=== PATIENT | male | born 1975 | race Caucasian/White ===

== ENCOUNTER 2020-02-09 04:39 | Emergency (ER) | payer BC, SELFPAY ==
--- NOTE | ~2020-02-09 | CT_ITS ---
EXAMINATION: CT abdomen pelvis wo con DATE: 02/09/2020 05:11 INDICATION: Left flank pain TECHNIQUE: Computed tomography (CT) of the abdomen and pelvis was performed without intravenous contr ast. The dose-length product (DLP) was 1298.21 mGy-cm. Automated exposure control and iterative recon struction technique were employed. COMPARISON: 07/06/2015 FINDINGS: The lung bases are clear. The heart size is normal. There is calcified coronary artery athe rosclerosis. There are changes of gastric bypass surgery. The liver, spleen, pancreas, gallbladder, a nd adrenal glands are normal. There is a 4 mm stone near the left ureterovesicular junction which cau ses mild left hydroureteronephrosis. Nonobstructing left kidney stones measure up to 9 mm. There are multiple nonobstructing stones of the right kidney which measure up to 5 mm. No pathologically enlarg ed abdominal or pelvic lymph nodes are identified. There is no free intraperitoneal gas or evidence o f bowel obstruction. The appendix is normal. There is mild lumbar spondylosis. IMPRESSION: 1. 4 mm stone near the left ureterovesicular junction causing mild left hydroureteronephrosis. 2. Bilateral nonobstructing nephrolithiasis. Reviewed, dictated and finalized at location A. IMPRESSION: 1. 4 mm stone near the left ureterovesicular junction causing mild left hydrour eteronephrosis. 2. Bilateral nonobstructing nephrolithiasis.
[2020-02-09 04:41] VITALS: BP 145/97; PULSE 68; RESP 16; TEMP 37.1; O2SAT 100
--- NOTE | 2020-02-09 04:49 | ED.ABDPAIN ---
HPI - Abdominal Pain General Chief Complaint: Abdominal Pain Stated Complaint: kidney stone Time Seen by Provider: 02/09/20 04:44 History of Present Illness HPI narrative: Left flank pain since last night. No radiation. Feels the same as prior kidney stones, which he has had several of. No nausea, vomiting, fever, hematuria. He took [address] Younger is his urologist. Related Data Home Medications Medication Instructions Recorded Confirmed montelukast mg 02/09/20 Allergies Allergy/AdvReac Type Severity Reaction Status Date / Time hydrocodone Allergy Mild ITCHING Verified 02/09/20 05:03 Review of Systems Review of Systems: All systems reviewed & are unremarkable except as noted in HPI and below Constitutional: Constitutional: Denies chills and Denies fever(s) Cardiovascular: Cardiovascular: Denies chest pain Respiratory: Respiratory: Denies dyspnea Gastrointestinal: Gastrointestinal: Reports diarrhea, Denies nausea and Denies vomiting Genitourinary: Genitourinary: Denies hematuria and Denies dysuria Musculoskeletal: Musculoskeletal: Denies myalgias Neurologic: Denies dizziness and Denies weakness [facility] Past Medical History Medical History (Updated 02/09/20 @ 05:54 by Eric Benito MD) Kidney stone Family History Family History Grandparent Family history of transient ischemic attacks Family history of lung cancer Other Diabetes mellitus Hypertension Social History Social History Smoking status: Never smoker Alcohol intake: current Exam Const: General: no acute distress and alert Nutritional Appearance: obese Orientation/consciousness: patient oriented x3 HENMT: Mouth: Yes dry mucous membranes Resp: Effort & Inspection: normal respiratory effort GI: GI Palp: Yes Soft to palpation Skin: General skin exam: normal color Neuro: General: patient oriented x3 and moves all extremities Speech: normal speech Course Vital Signs Vital signs: Vital Signs Temperature 37.1 C 02/09/20 04:41 Pulse Rate 68 02/09/20 04:41 Respiratory Rate 16 02/09/20 04:41 Blood Pressure 145/97 H 02/09/20 04:41 Pulse Oximetry 100 02/09/20 04:41 Temperature 37.1 C 02/09/20 05:28 Pulse Rate 69 02/09/20 05:36 Respiratory Rate 14 02/09/20 05:36 Blood Pressure 138/93 H 02/09/20 05:36 Pulse Oximetry 100 02/09/20 05:36 MDM - Abdominal Pain Lab Data Result diagrams: 02/09/20 04:53 02/09/20 04:53 Labs: Lab Results 02/09/20 02/09/20 02/09/20 Range/Units 04:53 04:53 05:33 WBC 6.5 (4.5-10.0) K/mm3 RBC 5.05 (4.6-6.20) M/mm3 Hgb 15.4 (14.0-18.0) g/dL Hct 46.1 (42.0-52.0) % MCV 91.3 (80-100) fl MCH 30.5 (26-34) pg MCHC 33.4 (32-36) g/dl RDW 13.1 (11.5-14.5) % Plt Count 308 (150-375) k/mm3 MPV 10.2 (7.4-10.4) fl Immature Gran % (Auto) 0.2 (0-0.5) % Neut % (Auto) 34.8 L (45.5-73.1) % Lymph % (Auto) 52.6 H (18.3-44.2) % [place] % (Auto) 8.3 (2.6-8.5) % Eos % (Auto) 3.5 (0-4.4) % Baso % (Auto) 0.6 (0.2-1.2) % Lymph # (Auto) 3.41 H (0.9-3.2) K/mm3 [place] # (Auto) 0.5 (0.1-0.6) K/mm3 Eos # (Auto) 0.2 (0-0.3) K/mm3 Baso # (Auto) 0.0 (0.0-0.1) K/mm3 Abs Immat Gran (auto) 0.01 (0.00-0.031) K/mm3 Absolute Neuts (auto) 2.3 (1.3-6.7) K/mm3 Absolute Nucleated RBC 0.0 (0.0-0.012) K/mm3 Nucleated RBC % 0.0 (0.0-0.2) % Sodium 137 (137-145) mmol/L Potassium 3.5 (3.4-5.0) mmol/L Chloride 103 (98-107) mmol/L Carbon Dioxide 30 (22-30) mmol/L BUN 21 H (9-20) mg/dL Creatinine 0.80 (0.7-1.3) mg/dL Estim Creat Clear Calc 138 ml/min Estimated GFR > 60 (59 - ) Glucose 103 (75-110) mg/dL Calcium 9.4 (8.4-10.2) mg/dL Urine Color Yellow (Yellow) Urine A
[2020-02-09] MEDS: SODIUM CHLORIDE 0.9% IV 1,000 ML 999 ML IV CONT (05:00)
[2020-02-09 05:01] LABS: Basophils Percent Auto 0.6 % (0.2-1.2); Eosinophils Absolute Auto 0.2 K/mm3 (0-0.3); Eosinophils Percent Auto 3.5 % (0-4.4); Hematocrit 46.1 % (42.0-52.0); Hemoglobin 15.4 g/dL (14.0-18.0); Immature Granulocyte Absolute 0.01 K/mm3 (0.00-0.031); Immature Granulocyte Percent A 0.2 % (0-0.5); Lymphocytes Absolute Auto 3.41 K/mm3 (0.9-3.2); Lymphocytes Percent Auto 52.6 % (18.3-44.2); Mean Corpuscular HGB Conc 33.4 g/dl (32-36); Mean Corpuscular Hemoglobin 30.5 pg (26-34); Mean Corpuscular Volume 91.3 fl (80-100); Mean Platelet Volume 10.2 fl (7.4-10.4); Monocytes Absolute Auto 0.5 K/mm3 (0.1-0.6); Monocytes Percent Auto 8.3 % (2.6-8.5); Neutrophils Absolute Auto 2.3 K/mm3 (1.3-6.7); Neutrophils Percent Auto 34.8 % (45.5-73.1); Platelet Count Result 308 k/mm3 (150-375); Red Blood Count 5.05 M/mm3 (4.6-6.20); Red Cell Distribution Width 13.1 % (11.5-14.5); White Blood Count 6.5 K/mm3 (4.5-10.0)
[2020-02-09 05:18] LABS: Blood Urea Nitrogen 21 mg/dL (9-20); Calcium 9.4 mg/dL (8.4-10.2); Carbon Dioxide 30 mmol/L (22-30); Chloride 103 mmol/L (98-107); Estimated CRCL calculation 138 ml/min; Estimated Glomerular Filt Rate > 60; Glucose 103 mg/dL (75-110); Potassium 3.5 mmol/L (3.4-5.0); Sodium 137 mmol/L (137-145)
[2020-02-09 05:28] VITALS: TEMP 37.1
[2020-02-09] MEDS: MORPHINE SULFATE 2 MG/ML INJ IV PUSH (05:32)
[2020-02-09 05:36] VITALS: BP 138/93; PULSE 69; RESP 14; O2SAT 100
[2020-02-09 05:43] LABS: Add Urine Microscopic? YES; Appearance Urine Clear (Clear); Bilirubin Urine Negative (Negative); Blood Urine 2+ (Negative); Color Urine Yellow (Yellow); Glucose Urine UA Negative (Negative); Ketones Urine Negative (Negative); Leukocyte Esterase Ur Negative LEU/UL (Negative); Mucus Urine Rare /lpf; Nitrate Urine Negative (Negative); Protein Urine Negative (Negative); RBC Urine >75 /hpf (0-2); Specific Grav Ur 1.024 (1.001-1.035); Squamous Epithelial Cell Urine Rare /hpf (Few); Urobilinogen Urine Negative mg/dL (<2.0); WBC Urine 0-3 /hpf
[2020-02-09 06:02] VITALS: TEMP 37.1
[2020-02-09 06:16] VITALS: BP 125/91; PULSE 63; RESP 20; TEMP 36.3; O2SAT 94
== END 2020-02-09 06:18 | disposition home or self-care (01) ==
PROVIDERS: Emergency Provider Emergency Medicine; PCP Family Medicine
DX: N13.2 Hydronephrosis with renal and ureteral calculous obstruction (principal)
CPT/HCPCS: 36415; 74176; 80048; 81001; 85025; 96361; 96374; 96375; 99284; J2270; J3010; J7030

== ENCOUNTER 2020-10-13 16:11 | Outpatient (CLI) | payer BC, SELFPAY ==
--- NOTE | ~2020-10-13 | XR_ITS ---
EXAMINATION: XR abdomen/kub 1V DATE: 10/13/2020 16:30 INDICATION: Nephrolithiasis with bilateral abdominal pain. TECHNIQUE: A supine view of the abdomen on 2 radiographs was obtained. COMPARISON: CT dated 02/09/2020 FINDINGS: 9 mm stone at the lower pole of the left kidney and couple 2 mm stones at the interpolar region of th e left kidney. 3-4 mm stone projects over the mid right kidney. No definitive stones seen along the c ourse of the ureters however evaluation significantly limited by gas scattered throughout multiple lo ops of nondilated small bowel. Suture line in the left abdomen likely related to prior gastric bypass procedure. IMPRESSION: 1. Bilateral nephrolithiasis. No evident ureteral stones however assessment is significantly limited by multiple loops of superimposed nondilated gas containing small bowel. Reviewed, dictated and finalized at location A. E TRIM[place] IMPRESSION: 1. Bilateral nephrolithiasis. No evident ureteral stones however assessment is significantly limited by multiple loops of superimposed nondilated gas containi ng small bowel.
== END 2020-10-13 16:12 | disposition home or self-care (01) ==
PROVIDERS: PCP Family Medicine; Visit Provider Urology
DX: N20.0 Calculus of kidney (principal)
CPT/HCPCS: 74018

== ENCOUNTER 2022-04-13 03:21 | Observation (INO) | payer BC, SELFPAY ==
[2022-04-13] VITALS (18 sets, daily range): BP systolic 119–172; BP diastolic 76–130; PULSE 57–117; RESP 12–28; TEMP 35.5–36.7; O2SAT 93–100; BMI 39.9
--- NOTE | ~2022-04-13 | CT_ITS ---
EXAMINATION: CT abdomen pelvis wo con DATE: 04/13/2022 03:54 INDICATION: Left flank pain. History of kidney stones. TECHNIQUE: Computed tomography (CT) of the abdomen and pelvis was performed without intravenous contr ast. The dose-length product was 1111.57 mGy-cm. Automated exposure control and iterative reconstruct ion technique were employed. COMPARISON: CT dated 02/09/2020. FINDINGS: Lung bases are unremarkable. Heart size normal. No significant pleural or pericardial effus ion. There are surgical changes of gastric bypass. There is a low-density lesion at the dome of the l iver, likely benign. The spleen, pancreas, adrenal glands are unremarkable. Gallbladder is mildly dis tended with possible gallstones. There are nonobstructing bilateral renal stones. There is a left pro ximal ureteral stone measuring 8 mm at the L3-4 level. Mild left hydronephrosis. Bladder is decompres sed. There are surgical changes involving the small bowel in the left upper abdomen which is focally dilated with air-fluid level, nonspecific. This may reflect ileus or less likely partial obstruction. No significant vascular abnormality. No lymphadenopathy. Normal appendix. No acute osseous abnormali ty. IMPRESSION: 1. Left proximal ureteral stone measuring 8 mm with mild hydronephrosis. 2: Bilateral nephrolithiasis. 3: Focally dilated small bowel loops left upper abdomen with air-fluid level adjacent to anastomotic site. Consider ileus and partial obstruction. 4: Gallbladder distention with possible gallstones. Consider correlation with ultrasound. Reviewed, dictated and finalized at location A. IMPRESSION: 1. Left proximal ureteral stone measuring 8 mm with mild hydronephrosis. 2: Bilateral nephrolithiasis. 3: Focally dilated small bowel loops left upper abdomen with air-fluid level ad jacent to anastomotic site. Consider ileus and partial obstruction. 4: Gallbladder distention with possible gallstones. Consider correlation with u ltrasound.
[2022-04-13] MEDS: MORPHINE SULFATE (*CRX) 4 MG/ML INJ IV PUSH ×2 (03:40→04:09)
[2022-04-13] MEDS: SODIUM CHLORIDE 0.9% IV 1,000 ML 999 ML IV CONT (03:41)
[2022-04-13 04:11] LABS: Basophils Absolute Auto 0.1 K/mm3 (0.0-0.1); Basophils Percent Auto 0.9 % (0.2-1.2); Eosinophils Absolute Auto 0.3 K/mm3 (0-0.3); Eosinophils Percent Auto 3.6 % (0-4.4); Hematocrit 43.9 % (42.0-52.0); Immature Granulocyte Absolute 0.01 K/mm3 (0.00-0.031); Immature Granulocyte Percent A 0.1 % (0-0.5); Lymphocytes Absolute Auto 3.33 K/mm3 (0.9-3.2); Lymphocytes Percent Auto 47.6 % (18.3-44.2); Mean Corpuscular HGB Conc 34.2 g/dl (32-36); Mean Corpuscular Hemoglobin 31.5 pg (26-34); Mean Corpuscular Volume 92.2 fl (80-100); Mean Platelet Volume 10.7 fl (7.4-10.4); Monocytes Absolute Auto 0.8 K/mm3 (0.1-0.6); Monocytes Percent Auto 11.3 % (2.6-8.5); Neutrophils Absolute Auto 2.6 K/mm3 (1.3-6.7); Neutrophils Percent Auto 36.5 % (45.5-73.1); Platelet Count Result 314 k/mm3 (150-375); Red Blood Count 4.76 M/mm3 (4.6-6.20); Red Cell Distribution Width 12.7 % (11.5-14.5)
[2022-04-13 04:21] LABS: INR 1.1; Prothrombin Time 13.3 Seconds (11.1-14.7)
[2022-04-13 04:22] LABS: Partial Thromboplastin Time 27.4 SECONDS (22.3-36.8)
[2022-04-13] MEDS: HYDROmorphone HCL INJ (*CRX) 1 MG/ML SYR IV PUSH ×8 (04:28→12:34)
[2022-04-13 04:40] LABS: Anion Gap 6 mmol/L (8-16); Blood Urea Nitrogen 17 mg/dL (9-20); Calcium 9.1 mg/dL (8.4-10.2); Carbon Dioxide 26 mmol/L (22-30); Chloride 105 mmol/L (98-107); Estimated CRCL calculation 99 ml/min; Estimated Glomerular Filt Rate > 60; Glucose 95 mg/dL (65-110); Potassium 3.5 mmol/L (3.4-5.0); Sodium 137 mmol/L (137-145)
--- NOTE | 2022-04-13 04:50 | ED.MALEGU ---
HPI - Male Genitourinary General Chief complaint: Urogenital-Male Stated complaint: Right flank pain Time Seen by Provider: 04/13/22 03:31 History of Present Illness HPI Narrative: Patient is a 46-year-old male who presents ER with sudden onset left flank pain. Began just prior to arrival. Radiates into the groin and suprapubic region. No urinary frequency or urgency. Mild nausea. No fevers or chills or sweats. Has history of kidney stones and this feels similar. No alleviating factors. Patient can only walk around and attempt to ease his discomfort. Related Data Allergies Allergy/AdvReac Type Severity Reaction Status Date / Time hydrocodone Allergy Mild ITCHING Verified 04/17/21 08:13 Review of Systems Review of Systems: All systems reviewed & are unremarkable except as noted in HPI and below Constitutional: Constitutional: Denies chills and Denies fever(s) ENT: Denies nasal congestion and Denies sore throat PMFSH Past Medical History Medical History (Updated 04/13/22 @ 05:35 by Too Francois MD) Kidney stone Weight loss Family History Family History Grandparent Family history of transient ischemic attacks Family history of lung cancer Other Diabetes mellitus Hypertension Social History Social History Smoking status: Never smoker Alcohol intake: current Course Course Emergency Course: Admit to urology. Reevaluation(s) Reevaluation #1: Patient with persistent pain. Has had morphine 8 mg and Dilaudid 1 mg. We will give an additional milligram of Dilaudid. Contacted Dr. Dawson with urology. We will keep the patient ER and he will contact Dr. Younger to see if patient can go over to PACU and avoid admission. Date: 04/13/22 Time: 05:34 Vital Signs Vital signs: Vital Signs Temperature 96.2 F L 04/13/22 03:23 Pulse Rate 117 H 04/13/22 03:23 Respiratory Rate 28 H 04/13/22 03:23 Blood Pressure 172/130 H 04/13/22 03:23 Pulse Oximetry 100 04/13/22 03:23 Oxygen Delivery Room Air 04/13/22 03:23 Temperature 96.2 F L 04/13/22 03:23 Pulse Rate 61 04/13/22 06:29 Respiratory Rate 20 04/13/22 06:29 Blood Pressure 160/109 H 04/13/22 06:29 Pulse Oximetry 98 04/13/22 06:29 Oxygen Delivery Room Air 04/13/22 03:23 MDM - Male Genitourinary Lab Data Result diagrams: 04/13/22 04:05 04/13/22 04:05 Labs: Lab Results 04/13/22 04/13/22 04/13/22 Range/Units 04:05 04:05 04:05 WBC 7.0 (4.5-10.0) K/mm3 RBC 4.76 (4.6-6.20) M/mm3 Hgb 15.0 (14.0-18.0) g/dL Hct 43.9 (42.0-52.0) % MCV 92.2 (80-100) fl MCH 31.5 (26-34) pg MCHC 34.2 (32-36) g/dl RDW 12.7 (11.5-14.5) % Plt Count 314 (150-375) k/mm3 MPV 10.7 H (7.4-10.4) fl Immature Gran % (Auto) 0.1 (0-0.5) % Neut % (Auto) 36.5 L (45.5-73.1) % Lymph % (Auto) 47.6 H (18.3-44.2) % [place] % (Auto) 11.3 H (2.6-8.5) % Eos % (Auto) 3.6 (0-4.4) % Baso % (Auto) 0.9 (0.2-1.2) % Lymph # (Auto) 3.33 H (0.9-3.2) K/mm3 [place] # (Auto) 0.8 H (0.1-0.6) K/mm3 Eos # (Auto) 0.3 (0-0.3) K/mm3 Baso # (Auto) 0.1 (0.0-0.1) K/mm3 Abs Immat Gran (auto) 0.01 (0.00-0.031) K/mm3 Absolute Neuts (auto) 2.6 (1.3-6.7) K/mm3 Absolute Nucleated RBC 0.0 (0.0-0.012) K/mm3 Nucleated RBC % 0.0 (0.0-0.2) % PT 13.3 (11.1-14.7) Seconds INR 1.1 APTT 27.4 (22.3-36.8) SECONDS Sodium 137 (137-145) mmol/L Potassium 3.5 (3.4-5.0) mmol/L Chloride 105 (98-107) mmol/L Carbon Dioxide 26 (22-30) mmol/L Anion Gap 6 L (8-16) mmol/L BUN 17 (9-20) mg/dL Creatinine 0.80 (0.7-1.3) mg/dL Estim Creat Clear Calc 99 ml/min Estimated GFR > 60 (59 - ) Glucose 95 (65-110) mg/dL Calcium 9.1 (8.4-10.2) mg/dL Urine Color (Yellow) Urine Appeara
[2022-04-13 04:58] LABS: Appearance Urine Clear (Clear); Bilirubin Urine Negative (Negative); Color Urine Yellow (Yellow); Glucose Urine UA Negative (Negative); Ketones Urine Negative (Negative); Leukocyte Esterase Ur Negative LEU/UL (Negative); Mucus Urine Rare /lpf; Nitrate Urine Negative (Negative); Protein Urine Negative (Negative); RBC Urine 0-2 /hpf (0-2); Squamous Epithelial Cell Urine Rare /hpf (Few); Urobilinogen Urine 0.2 mg/dL (<2.0); WBC Urine 0-3 /hpf; pH Urine 6.5 (5.0-9.0)
[2022-04-13 05:08] LABS: Add Urine Microscopic? YES; Blood Urine Trace (Negative)
--- NOTE | 2022-04-13 07:50 | PM.IMHP ---
H&P: HPI History of Present Illness Date/Time: 04/13/22 07:50 Chief Complaint: Left flank pain Narrative: 46-year-old recurrent stone former who has had several procedures in the past, presents to the ER with severe left flank pain radiating to his left lower quadrant. Associated with nausea vomiting but no fevers chills or gross hematuria. Review of Systems Cardiovascular: Cardiovascular: Denies chest pain, Denies lightheadedness, Denies palpitations and Denies dyspnea Respiratory: Respiratory: Denies dyspnea Gastrointestinal: Gastrointestinal: Reports abdominal pain, Denies diarrhea, Reports nausea and Reports vomiting Genitourinary: Genitourinary: Denies hematuria and Denies dysuria Endocrine: Endocrine: Denies palpitations PMF Past Medical History Medical History (Updated 04/13/22 @ 07:52 by Cuauhtemoc Younger MD) Kidney stone Weight loss Family History Family History Grandparent Family history of transient ischemic attacks Family history of lung cancer Other Diabetes mellitus Hypertension Social History Social History Smoking status: Never smoker Alcohol intake: current Meds Home Medications and Allergies Home Medications Medication Instructions Recorded Confirmed Type budesonide 0.5 mg/2 mL suspension 0.5 mg (2 mL) irrigation DAILY #10 02/02/21 04/17/21 Rx for nebulization mL triamcinolone acetonide 0.1 % 1 applic topical DAILY #80 grams 02/02/21 04/17/21 Rx topical ointment crisaborole 2 % topical ointment 1 applic topical BID eczema #100 08/24/21 Rx (Eucrisa) grams celecoxib 100 mg capsule See Rx Instructions .Route 12/07/21 Rx .COMPLEX #60 caps cyclobenzaprine 10 mg tablet 10 mg PO TID PRN muscle spasm #60 02/19/22 Rx tabs fluticasone 500 mcg-salmeterol 50 1 inh inhalation Q12H #3 device 02/26/22 Rx mcg/dose blistr powdr for inhalation (Advair Diskus) montelukast 10 mg tablet 10 mg PO DAILY #90 tabs 03/29/22 Rx Allergies Allergy/AdvReac Type Severity Reaction Status Date / Time hydrocodone Allergy Mild ITCHING Verified 04/17/21 08:13 Vital Signs Vital Signs - 24 hr 04/13/22 03:23 04/13/22 05:04 04/13/22 05:44 Temperature 96.2 F L Pulse Rate 117 H 74 72 Respiratory Rate 28 H 18 18 Blood Pressure 172/130 H 164/105 H 145/112 H Pulse Oximetry 100 97 99 Oxygen Delivery Room Air 04/13/22 06:29 Temperature Pulse Rate 61 Respiratory Rate 20 Blood Pressure 160/109 H Pulse Oximetry 98 Oxygen Delivery Exam Const: General: no acute distress Resp: Effort & Inspection: normal respiratory effort GI: Inspection: non-distended GI Palp: No abdominal tenderness and No Guarding due to palpation present (GI) Auscultation: normal bowel sounds H&P: Results Labs Labs: Short CBC 04/13/22 Range/Units 04:05 WBC 7.0 (4.5-10.0) K/mm3 Hgb 15.0 (14.0-18.0) g/dL Hct 43.9 (42.0-52.0) % Plt Count 314 (150-375) k/mm3 BMP 04/13/22 04:05 Sodium 137 Potassium 3.5 Chloride 105 Carbon Dioxide 26 BUN 17 Creatinine 0.80 Glucose 95 Calcium 9.1 Urine 04/13/22 Range/Units 04:43 Urine Color Yellow (Yellow) Urine Appearance Clear (Clear) Urine pH 6.5 (5.0-9.0) Ur Specific [place] 1.020 (1.001-1.035) Urine Protein Negative (Negative) mg/dL Urine Glucose (UA) Negative (Negative) mg/dL Assessment and Plan Assessment and plan (1) Ureterolithiasis: Code(s): N20.1 - Calculus of ureter Status: Acute (2) Bilateral renal stones: Code(s): N20.0 - Calculus of kidney Status: Acute Assessment and Plan: Patient with a painful obstructing 7-8 mm left proximal ureteral calculus and smaller bilateral nonobstructing renal calculi. After a discussion of the therapeutic options we have elected to proceed with cystoscopy with l
--- NOTE | 2022-04-13 07:58 | WPDHPUPDATE1 ---
History and Physical Update Update Date/Time: 04/13/22 07:58 History and Physical has been reviewed, including an updated exam of the patient. There are NO changes in the patient's condition. Risks, benefits, and alternatives have been discussed and questions answered. Patient agrees to proceed with procedure.
--- NOTE | 2022-04-13 08:05 | ADMGEN ---
This patient, Alessandro Stearns, was admitted to [facility] Room 311-01. Patient/family oriented to hospital policies and general routines including ID bracelet, bed and alarms, visiting hours, pain management, procedures, bathroom and other care routines, personal items, smoking policy, room service/diet, and visiting hours. Information on how to activate the Rapid Response Team has been discussed. Patient/Family are encouraged to report perceived risks to care and to ask questions if they do not understand what they are told or what they should do.
[2022-04-13] MEDS: SODIUM CHLORIDE 0.9% IV 1,000 ML 125 ML IV CONT (08:28)
--- NOTE | 2022-04-13 10:26 | PC.NURSE ---
pt's is in his room. she called and stated something is wrong. I entered the room to assess pt and found him crawling around on the bed and deliberately thrashing about. He stated he was fine until he went to the bathroom to urinate and thinks something shifted causing him extreme pain. I administered another dose of the prescribed delauded and attempted to have patient control his breathing in an effort to reduce the pain.
[2022-04-13] MEDS: LACTATED RINGERS 1,000 ML 30 ML IV CONT (11:40)
--- NOTE | 2022-04-13 11:56 | WPDANESEPPF ---
Anes - Initial Pre Proc Eval Procedure: Operation Date: 04/13/22 13:00 Proposed Procedures p Cystoscopy, Possible Left Stent Placement, - Cuauhtemoc Younger MD s Possible Left Extracorporeal Shock Wave Lithotripsy - Cuauhtemoc Younger MD Date/Time: 04/13/22 11:56 Surgeon: Cuauhtemoc Younger MD Pre Op Diagnosis: Ureterolithiasis Patient Data Age: 46 Gender: M Height: 1.75 m Weight: 122.7 kg Last Vital Signs Temp 36.7 C 04/13/22 11:51 Pulse 57 L 04/13/22 11:51 Resp 20 04/13/22 11:51 BP 136/83 04/13/22 11:51 Pulse Ox 98 04/13/22 11:51 O2 Del Method Room Air 04/13/22 11:51 O2 Flow Rate 2 04/13/22 08:30 Allergies Allergy/AdvReac Type Severity Reaction Status Date / Time hydrocodone Allergy Mild ITCHING Verified 04/17/21 08:13 Home Medications Medication Instructions Recorded Confirmed Type budesonide 0.5 mg/2 mL suspension 0.5 mg (2 mL) irrigation DAILY #10 02/02/21 04/13/22 Rx for nebulization mL cyclobenzaprine 10 mg tablet 10 mg PO TID PRN muscle spasm #60 02/19/22 04/13/22 Rx tabs fluticasone 500 mcg-salmeterol 50 1 inh inhalation Q12H #3 device 02/26/22 04/13/22 Rx mcg/dose blistr powdr for inhalation (Advair Diskus) celecoxib 100 mg capsule 100 mg PO BID PRN Pain 04/13/22 04/13/22 History crisaborole 2 % topical ointment 1 applic topical HS eczema 04/13/22 04/13/22 History (Eucrisa) fexofenadine 180 mg tablet 180 mg PO DAILY 04/13/22 04/13/22 History montelukast 10 mg tablet 10 mg PO HS 04/13/22 04/13/22 History omeprazole 20 mg capsule,delayed 20 mg PO HS 04/13/22 04/13/22 History release triamcinolone acetonide 0.1 % 1 applic topical HS 04/13/22 04/13/22 History topical ointment Laboratory Tests 04/13/22 04/13/2222 04:05 04:05 04:05 WBC 7.0 K/mm3 K/mm3 (4.5-10.0) RBC 4.76 M/mm3 M/mm3 (4.6-6.20) Hgb 15.0 g/dL g/dL (14.0-18.0) Hct 43.9 % % (42.0-52.0) MCV 92.2 fl fl (80-100) MCH 31.5 pg pg (26-34) MCHC 34.2 g/dl g/dl (32-36) RDW 12.7 % % (11.5-14.5) Plt Count 314 k/mm3 k/mm3 (150-375) MPV 10.7 fl H fl (7.4-10.4) Immature Gran % (Auto) 0.1 % % (0-0.5) Neut % (Auto) 36.5 % L % (45.5-73.1) Lymph % (Auto) 47.6 % H % (18.3-44.2) [place] % (Auto) 11.3 % H % (2.6-8.5) Eos % (Auto) 3.6 % % (0-4.4) Baso % (Auto) 0.9 % % (0.2-1.2) Lymph # (Auto) 3.33 K/mm3 H K/mm3 (0.9-3.2) [place] # (Auto) 0.8 K/mm3 H K/mm3 (0.1-0.6) Eos # (Auto) 0.3 K/mm3 K/mm3 (0-0.3) Baso # (Auto) 0.1 K/mm3 K/mm3 (0.0-0.1) Abs Immat Gran (auto) 0.01 K/mm3 K/mm3 (0.00-0.031) Absolute Neuts (auto) 2.6 K/mm3 K/mm3 (1.3-6.7) Absolute Nucleated RBC 0.0 K/mm3 K/mm3 (0.0-0.012) Nucleated RBC % 0.0 % % (0.0-0.2) PT 13.3 Seconds Seconds (11.1-14.7) INR 1.1 APTT 27.4 SECONDS SECONDS (22.3-36.8) Sodium 137 mmol/L mmol/L (137-145) Potassium 3.5 mmol/L mmol/L (3.4-5.0) Chloride 105 mmol/L mmol/L (98-107) Carbon Dioxide 26 mmol/L mmol/L (22-30) Anion Gap 6 mmol/L L mmol/L (8-16) BUN 17 mg/dL mg/dL (9-20) Creatinine 0.80 mg/dL mg/dL (0.7-1.3) Estim Creat Clear Calc 99 ml/min ml/min Estimated GFR > 60 (59 - ) Glucose 95 mg/dL mg/dL (65-110) Calcium 9.1 mg/dL mg/dL (8.4-10.2) Urine Color Urine Appearance Urine pH Ur Specific [place] Urine Protein Urine Glucose (UA) Urine Ketones Ur Blood (Man) Urine Nitrate Urine Bilirubin Urine Urobilinogen Leukocyte Esterase Rfl Urine RBC Urine WBC
[2022-04-13] MEDS: LIDOCAINE HCL 2% GEL UROJET 10 ML PKG MUCOUS MEM (13:15)
[2022-04-13] MEDS: ceFAZolin 3 GM/D5W 100 ML 100 ML IVPB (13:15)
--- NOTE | 2022-04-13 13:32 | P.OP_ITS ---
Procedure Note - Detailed Date of Procedure 04/13/22 Pre-op Diagnosis Ureterolithiasis Post-op Diagnosis Same Procedure Performed Cystoscopy, left ureteral stent placement, left ESWL Surgeon Cuauhtemoc Younger MD Anesthesia General Description of Procedure The patient was brought to the operative suite where he was placed in the supine position on the Dornier lithotripter table. Flexible cystoscopy was undertaken with a 16F flexible cystoscopy. There were no urethral strictures. The prostatic urethra estimated length was 1.5cm. There was mild obstruction of the prostatic urethra with no median lobe enlargement. The bladder mucosa was normal and there was a single, orthotopic ureteral orifice bilaterally. A 0.035 glidewire was advanced into the left renal pelvis under fluoroscopy. A 4.8F J-J ureteral stent was positioned with the proximal coil in the renal pelvis and the distal coil in the bladder. The patient was then repositioned in the supine position with the focal point of the lithotriptor on a 8mm left proximal ureteral calculus. A total of 3000 shocks were delivered at a power se tting of 6. There appeared to be good fragmentation of the stone. The patient tolerated the procedure well and was taken to the recovery room in good condition. Drains Yes Packing No Pathology None sent Complications No immediate complications Condition Stable Disposition PACU
--- NOTE | 2022-04-23 07:19 | P.DS_ITS ---
DS: Admitting Diagnosis Discharge Date 04/13/22 Admitting Diagnosis Left ureteral stone DS: Summary Hospital Course Hospital Course: Patient was admitted with a painful left proximal ureteral stone. During the course of admission he underwent cystoscopy with left ureteral stent placement and left ESWL. Postoperatively he was comfortable and tolerating a diet comp prompting discharge the evening of the procedure. Throughout he had no significant fever or hematuria Time Spent with Patient Time attestation: Total time spent providing and/or coordinating discharge services: 15 min. Discharge Plan Discharge Attending physician on discharge: Cuauhtemoc Younger Consulting providers: Spencer Durham Discharging Clinician: Cuauhtemoc Younger Patient Disposition: Home, Self-Care Activity: other - see discharge instructions Diet: other - see discharge instructions Discharge Instructions: 1) Activity: * No driving or important decisions [id number]. * No lifting/straining >15lbs. [id number]. 2) Strain urine until one stone fragment retrieved. Bring that fragment to your follow-up visit. 3) Diet: resume normal pre-admission diet. 4) Follow-up: 2-3 weeks with [facility] / call for appointment ([phone]) Patient Instructions: Antibiotic Form, Kidney Stones (DC), Cystoscopy (DC) Stand Alone Forms: General Discharge Information Follow-up/Referrals: Cuauhtemoc Younger MD [Physician] - Discharge Medications: New sulfamethoxazole-trimethoprim 800-160 mg tablet 1 tablet PO Q12H Qty: 6 0RF oxycodone 5 mg tablet 5 - 10 mg PO Q8H PRN (Reason: pain) Qty: 30 0RF Continued budesonide 0.5 mg/2 mL suspension for nebulization 0.5 mg irrigation DAILY Qty: 10 0RF Rx Instructions: with 2ml saline for nasal irrigation fexofenadine 180 mg Tablet 180 mg PO DAILY omeprazole 20 mg Capsule,Delayed Release(Dr/Ec) 20 mg PO HS triamcinolone acetonide 0.1 % ointment 1 applic topical HS Rx Instructions: apply to each nostril after nasal irrigation montelukast 10 mg tablet 10 mg PO HS Eucrisa 2 % ointment 1 applic topical HS cyclobenzaprine 10 mg tablet 10 mg PO TID PRN (Reason: muscle spasm) Qty: 60 0RF fluticasone propion-salmeterol [Advair Diskus] 500-50 mcg/dose blister with device 1 inh INHALATION Q12H Qty: 3 2RF Held celecoxib 100 mg capsule 100 mg PO BID PRN (Reason: Pain) Hold Instructions: Resume on 04/15/22. Rx Instructions: TAKE 1 CAPSULE BY MOUTH TWICE DAILY NEEDED FOR PAIN Other Ambulatory Orders: XR abdomen/kub 1V (Routine) Timeframe: 2 Weeks Location: Determined by Patient Ordered By: Cuauhtemoc Younger Date of admission: 04/13/22 07:00 Primary Care Provider: Carlito Diaz Admitting Provider: Cuauhtemoc Younger Attending physician on admission: Cuauhtemoc Younger Condition: Stable
== END 2022-04-13 19:45 | disposition home or self-care (01) ==
LOC: ANHED 07:16 → ANH3MEDSUR 07:44
PROVIDERS: Admitting Provider Urology; Emergency Provider Emergency Medicine; PCP Family Medicine; Visit Provider Urology
PROC: (CPT 52352; principal; 2022-04-13 13:00)
PROC: (CPT 50590; 2022-04-13 13:00)
DX: N13.2 Hydronephrosis with renal and ureteral calculous obstruction (principal)
CPT/HCPCS: 52332; 50590; 36415; 74176; 80048; 81001; 85025; 85610; 85730; 96361; 96374; 96375; 96376; 99285; A9270; C1769; C1887; C2617; G0378; J0690; J1100; J1170; J2270; J2405; J2704; J3010; J7030; J7120

== ENCOUNTER → 2022-04-24 00:20 | Outpatient (CLI) | payer BC, SELFPAY ==
[2022-04-24 16:55] LABS: SARS-CoV-2 RNA PCR Positive
== END ==
PROVIDERS: PCP Nurse Practitioner Family; Visit Provider Nurse Practitioner Family
DX: U07.1 COVID-19 (principal)
CPT/HCPCS: C9803; U0003; U0005

== ENCOUNTER 2022-05-01 13:57 | Outpatient (CLI) | payer BC, SELFPAY ==
--- NOTE | ~2022-05-01 | XR_ITS ---
EXAM: XR abdomen/kub 1V DATE: 05/01/2022 14:19 HISTORY: N20.1 - Calculus of ureter, follow-up . COMPARISON: CT abdomen and pelvis 04/13/2022. FINDINGS: Clear lung bases. Normal bowel gas pattern. No organomegaly. Left ureteral stent Bilateral renal calcifications. 5 mm calcification in the mid left ureter. 2 and 3 mm calcifications project o marvin the expected location of the distal left ureter. Regional bones and soft tissues normal for age. IMPRESSION: Left ureteral stent, in good position. Multiple left-sided renal stones likely within the left ureter, as described. Bilateral nephrolithiasis Reviewed, dictated and finalized at location K. IMPRESSION: Left ureteral stent, in good position. Multiple left-sided renal st ones likely within the left ureter, as described. Bilateral nephrolithiasis
== END 2022-05-01 13:58 | disposition home or self-care (01) ==
PROVIDERS: PCP Family Medicine; Visit Provider Urology
DX: N20.1 Calculus of ureter (principal); N20.0 Calculus of kidney
CPT/HCPCS: 74018

== ENCOUNTER 2023-03-21 10:19 | Outpatient (CLI) | payer BC, SELFPAY ==
--- NOTE | ~2023-03-21 | XR_ITS ---
Supine and upright views of the abdomen Clinical history: Renal stones COMPARISON: 05/01/2022 Findings: Bowel gas pattern is nonspecific. No evidence for obstruction or free air. Oh 4 mm left upp er pole renal stone noted.. No definite right renal stone seen. Osseous structures are intact. Impression: 4 mm left renal stone. No definite right renal stone seen. Reviewed, dictated and finalized at location . Impression: 4 mm left renal stone. No definite right renal stone seen.
== END 2023-03-21 10:20 | disposition home or self-care (01) ==
LOC: ANHIMG 10:22
PROVIDERS: PCP Family Medicine; Visit Provider Urology
DX: N20.0 Calculus of kidney (principal)
CPT/HCPCS: 74018

== ENCOUNTER 2024-10-14 15:22 | Outpatient (CLI) | payer OTHER, SELFPAY ==
--- NOTE | ~2024-10-14 | XR_ITS ---
XR abdomen/kub 1V Ordering provider: Cuauhtemoc Younger MD History: . calculus of ureter . Comparison: March 21, 2023 FINDINGS: BOWEL: Nonobstructive bowel gas pattern. ORGANOMEGALY: None. SIGNIFICANT PATHOLOGIC CALCIFICATIONS: Calcification seen in the left renal area which may indicate s tones. OTHER: No free air is seen under the diaphragm. IMPRESSION: NO ACUTE ABDOMINAL FINDINGS. Highly suggestive left kidney stone. Reviewed, dictated and finalized at location A. URE FRAMER
== END 2024-10-14 15:23 | disposition home or self-care (01) ==
LOC: ANHIMG 15:29
PROVIDERS: PCP Family Medicine; Visit Provider Urology
DX: N20.1 Calculus of ureter (principal)
CPT/HCPCS: 74018

== ENCOUNTER 2024-10-22 07:29 | Outpatient (CLI) | payer OTHER, SELFPAY ==
--- NOTE | ~2024-10-22 | CT_ITS ---
Non-contrast CT scan of the Abdomen and Pelvis Clinical indication: Ureteral stone Technique: 2.5 mm axial scans were obtained through the abdomen and pelvis without intravenous or or al contrast. Dose reduction technique was used on this scan by utilizing automated exposure control a nd iterative reconstruction technique. The dose-length product (DLP) was 956.98 mGy-cm. COMPARISON: 04/13/2022 Findings: Images through the lung bases reveal no abnormalities. Small bilateral nonobstructing renal stones are present, largest stone measuring approximately 4-5 mm . No ureteral stone or hydronephrosis on either side. The liver, spleen, pancreas, gallbladder, and adrenals appear normal. There is no aortic aneurysm. There is no evidence of bowel obstruction. There is evidence of prior bariatric surgery. Images through the pelvis were performed. There is no evidence of ascites or lymphadenopathy. Urinary bladder unremarkable. No pelvic mass seen. Impression: Small bilateral nonobstructing renal calculi, as detailed above. No ureteral stone or hydronephrosis on either side. Prior bariatric surgery. Reviewed, dictated and finalized at [facility]. CIATE PROFESSOR OF PHYSICS Impression: Small bilateral nonobstructing renal calculi, as detailed above. No ureteral st one or hydronephrosis on either side. Prior bariatric surgery.
== END 2024-10-22 07:30 | disposition home or self-care (01) ==
PROVIDERS: PCP Family Medicine; Visit Provider Urology
DX: N20.1 Calculus of ureter (principal); Z98.890 Other specified postprocedural states
CPT/HCPCS: 74176

== ENCOUNTER 2024-10-30 13:32 | Outpatient (CLI) | payer OTHER, SELFPAY ==
[2024-10-30 14:21] LABS: INR 0.9; Prothrombin Time 12.8 Seconds (11.1-14.7)
[2024-10-30 14:22] LABS: Anion Gap 5 mmol/L (4-12); Blood Urea Nitrogen 15 mg/dL (9-20); Calcium 9.3 mg/dL (8.4-10.2); Carbon Dioxide 27 mmol/L (22-30); Chloride 104 mmol/L (98-107); Estimated Glomerular Filt Rate > 60; Glucose 77 mg/dL (65-110); Partial Thromboplastin Time 24.2 Seconds (22.3-36.8); Potassium 3.7 mmol/L (3.4-5.0); Sodium 136 mmol/L (137-145)
== END 2024-10-30 13:33 | disposition home or self-care (01) ==
LOC: ANHSURGERY 13:37
PROVIDERS: PCP Family Medicine; Visit Provider Urology
DX: N20.0 Calculus of kidney (principal); Z79.899 Other long term (current) drug therapy; Z01.818 Encounter for other preprocedural examination
CPT/HCPCS: 36415; 80048; 85610; 85730; 87086

== ENCOUNTER 2024-11-05 00:42 | Day surgery (SDC) | payer OTHER, SELFPAY ==
[2024-10-27 14:20] VITALS: BMI 37.3
--- NOTE | 2024-10-27 14:29 | PC.NURSE ---
Report to the Outpatient Waiting Room, entrance under the green pavilion located off [facility], at time _1000_ on date _[id number]_. Planned Procedure Time: _1200_.? Time changes happen often and if your time is changed the preop area will call you the afternoon before. - You and your visitor will be asked to self-screen and do not enter if you have any COVID symptoms. Please call surgeon if you need to reschedule. - A mask is optional within the hospital at this time. Patients may have clear liquids (water, carbonated beverages, clear teas, apple juice) until 3 hours prior to surgery with a maximum of 20 ounces. - No food from midnight until time of surgery and no smoking. This includes no chewing gum, candy or mints. Take only the following medications with a SIP of water on the morning of surgery: ___Fluoxetine, Nasal rinse. DO NOT STOP ANY OF YOUR OTHER PRESCRIPTION MEDICATIONS PRIOR TO SURGERY EXCEPT THE FOLLOWING Medications to discontinue per physician Semaglutide Date to take last dose____Skip Sundays dose until after surgery. Please no make-up, nail nauruan, hairspray, perfume, deodorant, or body powder the day of surgery.? No jewelry (including any body piercings) or valuables the day of surgery, leave them at home.? Please take a shower or bath the night before, or the morning of, surgery with an antibacterial soap.? Wear comfortable, loose fitting clothing.? - Jewelry must be removed prior to entering the operating room.? Rings and piercings that are not removed may be cut off. - The hospital will not accept responsibility for valuables.? - Please leave all valuables, including medications, at home the day of surgery. If you are going home after surgery, a licensed bus van driver must drive you home.? - NO public transportation without another adult if you receive anesthesia. - We recommend that an adult stay with you for 24 hours following discharge. - We also recommend that you do not drive, make important decision, drink alcoholic beverages, or take any drugs that were not prescribed by your health care provider for at least 24 hours after your discharge time. Follow any additional instructions given to you from your surgeon. Telephone instructions given to _Russ__and asked if any additional questions and then verbalized understanding. Patient advised to call surgeon office or pre surgery nurse liaison [phone] if any additional questions.
[2024-11-05] VITALS (9 sets, daily range): BP systolic 118–141; BP diastolic 80–91; PULSE 74–86; RESP 12–20; TEMP 36.1–36.7; O2SAT 97–100
--- NOTE | ~2024-11-05 | XR_ITS ---
XR abdomen/kub 1V Ordering provider: Cuauhtemoc Younger MD History: . PRE LITHO LEFT SIDE STONE . Comparison: None. FINDINGS: BOWEL: Nonobstructive bowel gas pattern. ORGANOMEGALY: None. SIGNIFICANT PATHOLOGIC CALCIFICATIONS: Multiple small faint calcifications are seen in the left lázaro durga area. OTHER: No free air is seen under the diaphragm. IMPRESSION: NO ACUTE ABDOMINAL FINDINGS. Multiple small faint calcifications are seen in the left paraspinal area suggestive of stones. Reviewed, dictated and finalized at location A. AULIC PRESS OPERATOR IMPRESSION: NO ACUTE ABDOMINAL FINDINGS. Multiple small faint calcifications are seen in the left paraspinal area sugges tive of stones.
--- NOTE | ~2024-11-05 | CT_ITS ---
EXAMINATION: CT abdomen pelvis wo con DATE: 11/05/2024 11:09 INDICATION: Left kidney stone. TECHNIQUE: Computed tomography (CT) of the abdomen and pelvis was performed without intravenous contr ast. Automated exposure control and iterative reconstruction technique were employed. The dose-length product was 1480.28 mGy-cm. COMPARISON: CT abdomen and pelvis 10/22/2024 FINDINGS: The visualized portions of the lung bases demonstrate minimal atelectasis. No pleural effus ion. The heart size is normal. No pericardial effusion. The liver, gallbladder, spleen, pancreas, and adrenal glands are normal. There is a 2 mm stone in right kidney. There are 6 stones in left kidney measuring up to 6 mm. There are changes of left inguinal hernia repair. There are no dilated loops of bowel. The appendix is normal. There are changes of gastric bypass procedure. There are no pathologi barbara enlarged lymph nodes. There is no free intraperitoneal fluid. IMPRESSION: 1. Bilateral nonobstructing kidney stones. Reviewed, dictated and finalized at location A. RV[employer]OR WHEEL SHOP
[2024-11-05] MEDS: LACTATED RINGERS 1,000 ML 30 ML IV CONT (10:00)
--- NOTE | 2024-11-05 11:42 | P.PNAN_ITS ---
Anes - Initial Pre Proc Eval Procedure: Operation Date: 11/05/24 12:00 Proposed Procedures p Left Extracorporeal Shock Wave Lithotripsy - Cuauhtemoc Younger MD Date/Time: 11/05/24 11:42 Surgeon: Cuauhtemoc Younger MD Pre Op Diagnosis: Renal Stones Patient Data Age: 49 Gender: M Height: 1.77 m Weight: 116 kg Last Vital Signs Temp 36.7 C 11/05/24 10:00 Pulse 81 11/05/24 10:00 Resp 16 11/05/24 10:00 BP 141/91 H 11/05/24 10:00 Pulse Ox 99 11/05/24 10:00 Allergies Allergy/AdvReac Type Severity Reaction Status Date / Time hydrocodone Allergy Mild ITCHING Verified 11/05/24 10:31 Home Medications ?Medication ?Instructions ?Recorded ?Confirmed ?Type budesonide 0.5 mg/2 mL suspension 0.5 mg (2 mL) irrigation DAILY #10 02/02/21 10/27/24 Rx for nebulization mL fluticasone 500 mcg-salmeterol 50 1 inh inhalation Q12H #3 device 02/26/22 11/05/24 Rx mcg/dose blistr powdr for inhalation (Advair Diskus) triamcinolone acetonide 0.1 % 1 applic topical HS 04/13/22 10/27/24 History topical ointment cyclobenzaprine 10 mg tablet 10 mg PO TID PRN muscle spasm #60 03/14/23 10/27/24 Rx tabs fluoxetine 20 mg capsule (Prozac) 20 mg PO DAILY #90 caps 04/25/23 11/05/24 Rx montelukast 10 mg tablet See Rx Instructions .Route 05/21/23 11/05/24 Rx .COMPLEX #90 tabs cetirizine 10 mg tablet (24Hour 10 mg PO DAILY 10/27/24 11/05/24 History Allergy) gabapentin 300 mg capsule 300 mg PO HS 10/27/24 11/05/24 History hydrochlorothiazide 25 mg tablet 25 mg PO DAILY 10/27/24 11/05/24 History semaglutide (weight loss) 2.4 2.4 mg subcut WEEKLY 10/27/24 10/27/24 History mg/0.75 mL subcutaneous pen injector Patient hx anesthesia problems: none Family hx anesthesia problems: none Results Review: All pre-operative results and documents have been reviewed as part of the pre- operative evaluation. [facility] Past Medical History Medical History Screening for colon cancer Adult BMI 39.0-39.9 kg/sq m Weight loss Kidney stone Surgical History Surgical History Hx of lithotripsy April 2022 H/O arthroscopic knee surgery History of gastric bypass Family History Family History Grandparent Family history of transient ischemic attacks Family history of lung cancer Other Diabetes mellitus Hypertension Social History Social History Smoking status: Never smoker Alcohol intake: current Drinks per week: 3 Substance use: never Substance use type: does not use Living arrangements: with family Spiritual care concerns: No Anes - Eval Final PreProcedure Day of Procedure 11/05/24 11:42 Patient weight: obese Heart: regular rate and rhythm Lungs: clear to auscultation Airway: Mallampati scale class II Neurological: alert and oriented Last oral intake: >/= 8 hours ASA classification: III Emergent: no Anesthetic plan: proceed Anesthesia type and monitoring: general LMA and standard monitoring Results Review: All pre-operative results and documents have been reviewed as part of the pre- operative evaluation. Informed Consent: The patient's anesthetic plan and its attendant risks and benefits were discussed with the patient/family/POA. Questions were solicited and answers provided to the satisfaction of the patient/family/POA.
--- NOTE | 2024-11-05 11:47 | WPDHPUPDATE1 ---
History and Physical Update Update Date/Time: 11/05/24 11:47 History and Physical has been reviewed, including an updated exam of the patient. There are NO changes in the patient's condition. Risks, benefits, and alternatives have been discussed and questions answered. Patient agrees to proceed with procedure.
[2024-11-05] MEDS: ceFAZolin 2 GM/D5W 50 ML 2 GM/50 ML BAG IVPB (11:53)
--- NOTE | 2024-11-05 12:52 | W.PM.PROC2 ---
Procedure Note - Detailed Date of Procedure 11/05/24 Pre-op Diagnosis Renal Stones Post-op Diagnosis Same Procedure Performed Left ESWL Surgeon Cuauhtemoc Younger MD Anesthesia General Description of Procedure The patient was brought to the operative suite where he was placed in the supine position on the Dornier lithotripsy table. The focal point of the lithotripter was placed at the one dominant stone in the left kindey, a 5mm left upper pole calculus. A total of 2500 shocks were delivered at a power setting of 4. There appeared to be good fragmentation of the stone. The patient tolerated the procedure well and was taken to the recovery room in good condition. Drains No Packing No
[2024-11-05] MEDS: fentaNYL CITRATE INJ (*CRX) 100 MCG/2 ML VIAL 25 MCG IV PUSH ×4 (13:01→13:14)
--- NOTE | 2024-11-05 13:06 | SUR.PHASEI ---
1305: Simple mask removed.
--- NOTE | 2024-11-05 13:43 | SUR.PHASEII ---
Per patient he has taken oxycodone in the past with no adverse reaction.
[2024-11-05] MEDS: oxyCODONE HCL (*CRX) 5 MG TAB IR PO (13:50)
== END 2024-11-05 14:18 | disposition home or self-care (01) ==
PROVIDERS: PCP Family Medicine; Visit Provider Urology
PROC: (CPT 50590; principal; 2024-11-05 12:00)
DX: N20.0 Calculus of kidney (principal); I10 Essential (primary) hypertension; J45.909 Unspecified asthma, uncomplicated; E78.00 Pure hypercholesterolemia, unspecified; G47.30 Sleep apnea, unspecified; E66.9 Obesity, unspecified; Z68.37 Body mass index [BMI] 37.0-37.9, adult; Z79.51 Long term (current) use of inhaled steroids; Z79.85 Long-term (current) use of injectable non-insulin antidiabetic drugs; Z79.899 Other long term (current) drug therapy; Z98.890 Other specified postprocedural states; Z98.84 Bariatric surgery status; Z80.1 Family history of malignant neoplasm of trachea, bronchus and lung; Z82.49 Family history of ischemic heart disease and other diseases of the circulatory system
CPT/HCPCS: 50590; 74018; 74176; A9270; J0690; J1100; J2405; J2704; J3010; J7120